=== PATIENT | female | born 1965 | race Hispanic/Latino ===

== ENCOUNTER 2018-02-15 17:59 | Inpatient (IN) | payer MEDICARE, OTHER ==
[2018-02-15] MEDS ORDERED: Sodium Chloride 0.9% 1,000 ML IV STA ×2 (18:58→22:04)
--- NOTE | 2018-02-15 19:22 | ED PDOC ---
Addendum entered and electronically signed by Yulissa May PA-C 02/16/18 00:27: Addendum Addendum: 02/16/18 00:26 Spoke with Adriana regarding CT results, she advised to continue with inpt medsurg admission and to order MRI for the morning. MRI ordered Original Note: Arrival/HPI - General Chief Complaint: Weakness/Neurological Deficit Time Seen by Provider: 02/15/18 18:43 - History of Present Illness Narrative History of Present Illness (Text): 02/15/18 22:13 53 y/o female with PMH of DM Type 2, Hypothyroidism, Down Syndrome, Hyperlipidemia who was sent to the ED with her brother by Dr. Falcon c/o intermittent altered mental status for 5 days. History obtained from brother. Pt has been intermittently confused, sleepy, and disoriented for the last week, with associated lack of appetite. Today pt visited Dr. Falcon with bloodwork results that showed a TSH of 57. Dr. Falcon sent pt here to r/o DKA v. infection v. severe hypothyroidism v. dehydration. Family has been tracking her sugars, which have been running 200-300. She lives at home with her 87 year old mother. Denies head trauma, fever, chills, cough, chest pain, palpitations, syncope, abdominal pain, N/V, diarrhea, rash, urinary symptoms. Past Medical History - Provider Review Nursing Documentation Reviewed: Yes - Reproductive Menopause: Yes (2007) - Cardiac Hx Cardiac Disorders: Yes - Pulmonary Hx Respiratory Disorders: No - Neurological Hx Neurological Disorder: No - HEENT Hx HEENT Disorder: No - Renal Hx Renal Disorder: No - Endocrine/Metabolic Hx Endocrine Disorders: Yes Hx Diabetes Mellitus Type 2: Yes Hx Hypothyroidism: Yes - Hematological/Oncological Hx Blood Disorders: No - Integumentary Hx Dermatological Disorder: No - Musculoskeletal/Rheumatological Hx Musculoskeletal Disorders: No - Gastrointestinal Hx Gastrointestinal Disorders: No - Genitourinary/Gynecological Hx Genitourinary Disorders: No - Psychiatric Hx Psychophysiologic Disorder: No Hx Substance Use: No - Surgical History Hx Orthopedic Surgery: Yes (right lower extremity; right hip) - Anesthesia Hx Anesthesia: Yes Family/Social History - Physician Review Nursing Documentation Reviewed: Yes Family/Social History: No Known Family HX Smoking Status: Never Smoked Hx Alcohol Use: No Hx Substance Use: No Allergies/Home Meds Allergies/Adverse Reactions: Allergies Penicillins Allergy (Verified 02/15/18 18:40) ANAPHYLAXIS Sulfa (Sulfonamide Antibiotics) Allergy (Verified 02/15/18 18:40) ANAPHYLAXIS Home Medications: Home Meds Medication Instructions Recorded Confirmed Cholecalciferol [Vitamin D 1000 IU] 50,000 units PO TUE 02/15/18 02/15/18 GlipiZIDE [Glucotrol] 5 mg PO BID 02/15/18 02/15/18 Levothyroxine [Synthroid] 75 mg PO DAILY 02/15/18 02/15/18 MetFORMIN [glucoPHAGE] 500 mg PO BID 02/15/18 02/15/18 Simvastatin [Zocor] 10 mg PO DAILY 02/15/18 02/15/18 Review of Systems - Physician Review All systems were reviewed & negative as marked: Yes - Review of Systems Constitutional: Fatigue. absent: Fevers, Night Sweats Eyes: Normal ENT: Normal Respiratory: Normal. absent: SOB, Cough, Sputum Cardiovascular: Normal. absent: Chest Pain, Palpitations, Syncope Gastrointestinal: Normal. absent: Abdominal Pain, Stool Changes, Nausea, Vomiting, Appetite Changes, Hematochezia Genitourinary Female: Normal. absent: Dysuria, Frequency, Hematuria Musculoskeletal: Arthralgias (left knee; chronic) Skin: Normal. absent: Rash Neurological: Normal. absent: Headache, Dizziness, Focal Weakness, Gait C hanges, Speech Changes, Facial Droop Physical Exam - Physical Exam Physical Exam Limitations: Other (Down Syndrome) Vital Signs Reviewed: Yes Vital Signs Temp Pulse Resp BP Pulse Ox 02/15/18 18:30 98.1 F 94 H 17 111/70 98 Temperature: Afebrile Blood Pressure: Normal Pulse: Regular Respiratory Rate: Normal Appearance: Positive for: Other (sleepy, pale) Pain Distress: None Mental Status: Positive for: Confused, Lethargic Finger Stick Blood Glucose: 137 - Systems Exam Head: Present: Atraumatic, Normocephalic Pupils: Present: PERRL Extroacular Muscles: Present: EOMI Conjunctiva: Present: Normal Ears: Present: Normal Mouth: Present: Dry Pharnyx: Present: Normal. No: ERYTHEMA, EXUDATE Nose (External): Present: Atraumatic Nose (Internal): Present: Normal Inspection Neck: Present: Normal Range of Motion. No: Meningeal Signs Respiratory/Chest: Present: Clear to Auscultation, Good Air Exchange. No: Respiratory Distress, Accessory Muscle Use Cardiovascular: Present: Regular Rate and Rhythm, Normal S1, S2. No: Murmurs Abdomen: No: Tenderness, Distention, Peritoneal Signs Upper Extremity: Present: NORMAL PULSES. No: Cyanosis, Edema Lower Extremity: Present: NORMAL PULSES. No: Edema Neurological: Present: CN II-XII Intact, Motor Func Grossly Intact, Normal Sensory Function. No: GCS=15 (14) Skin: Present: Warm, Dry, Pale. No: Rashes Lymphatic: No: Cervical Adenopathy Psychiatric: Present: Lethargic Medical Decision Making ED Course and Treatment: 02/15/18 19:09 53 y/o female with PMH of DM Type 2, Hypothyroidism, Down Syndrome, Hyperlipidemia who was sent to the ED with her brother by Dr. Falcon c/o intermittent altered mental status for 5 days. History obtained from brother. Pt has been intermittently confused, sleepy, and disoriented for the last week, with associated lack of appetite. Today pt visited Dr. Falcon with bloodwork results that showed a TSH of 57. Dr. Falcon sent pt here to r/o DKA v. infection v. severe hypothyroidism v. dehydration. Family has been tracking her sugars, which have been running 200-300. She lives at home with her 87 year old mother. Denies head trauma, fever, chills, cough, chest pain, palpitations, syncope, abdominal pain, N/V, diarrhea, rash, urinary symptoms. will get labs (CBC, CMP, troponin, lipid panel, A1c) will get vbg and blood cultures will check thyroid function and cortisol levels will get CT head will give 1L NS 02/15/18 22:[address] Zbigniew Wright accepted pt for inpt admission on [facility] Recommendation: -75cc/h IV fluids -IV Levothyroxine (4mcg/kg per Dr. Coy) 02/15/18 23:04 Pt awake and alert in bed, answering questions and communicating appropriately Ct Head: Mild brain atrophy and ventricular dilatation. Minimal area of asymmetric basal ganglia calcification or minimal petechial hemorrhage suggested at the left basal ganglia for which clinical correlation and follow up study recommended. 02/15/18 23:07 Re-evaluation Time: 23:03 Reassessment Condition: Re-examined, Improved - Lab Interpretations Lab Results: Lab Results 02/15/18 19:07: POC Glucose (mg/dL) 137 H - Medication Orders Current Medication Orders: Sodium Chloride (Sodium Chloride 0.9%) 1,000 mls @ 999 mls/hr IV .Q1H1M STA Stop: 02/15/18 19:58 Disposition/Present on Arrival - Present on Arrival Any Indicators Present on Arrival: No History of DVT/PE: No History of Uncontrolled Diabetes: No Urinary Catheter: No History of Decub. Ulcer: No History Surgical Site Infection Following: None - Disposition Have Diagnosis and Disposition been Completed?: Yes Diagnosis: Altered mental status Disposition: HOSPITALIZED Disposition Time: 22:00 Patient Problems: Current Active Problems Problem Status Onset Altered mental status Acute Condition: IMPROVED
[2018-02-15 19:58] LABS: VENOUS BLOOD GAS BASE EXCESS 8.2 mmol/L (0.0-2.0); VENOUS BLOOD GAS PO2 34 mm/Hg (30-55); VENOUS BLOOD PH 7.37 (7.32-7.43)
[2018-02-15 20:00] LABS: BASO # 0.03 K/mm3 (0.0-2.0); BASO % 0.5 % (0.0-3.0); GRAN # 4.62 (1.4-6.5); GRAN % 76.9 % (50.0-68.0); HEMOGLOBIN 13.7 g/dL (12.0-16.0); LYMPH # 0.8 (1.2-3.4); LYMPH % 13.8 % (22.0-35.0); MEAN CELL VOLUME 92.9 fl (80.0-105.0); MEAN CORPUSCULAR HEMOGLOBIN 31.4 pg (25.0-35.0); MEAN CORPUSCULAR HGB CONC 33.8 g/dl (31.0-37.0); MEAN PLATELET VOLUME 10.6 fl (7.0-11.0); MONO # 0.5 (0.1-0.6); MONO % 8.8 % (1.0-6.0); RBC 4.36 10^6/uL (3.5-6.1); RED CELL DISTRIBUTION WIDTH 13.5 % (11.5-14.5)
[2018-02-15 20:11] LABS: ALB/GLOB RATIO 1.1 (1.1-1.8); ALT/SGPT 50 U/L (7-56); AST/SGOT 60 U/L (14-36); BLOOD UREA NITROGEN 21 mg/dL (7-21); CALCIUM 9.4 mg/dL (8.4-10.5); GFR NON-AFRICAN AMERICAN > 60; HDL CHOLESTEROL 44 mg/dL (29-60)
[2018-02-15 20:21] LABS: LDL CHOLESTEROL 87 mg/dL (0-129)
[2018-02-15 20:25] LABS: TROPONIN I < 0.01 ng/mL
[2018-02-15 21:04] LABS: FREE T4 1.19 ng/dL (0.78-2.19)
[2018-02-15 21:44] LABS: URINE BILIRUBIN NEGATIVE (NEGATIVE); URINE BLOOD NEGATIVE (NEGATIVE); URINE GLUCOSE (UA) NEGATIVE (NEGATIVE); URINE LEUKOCYTE ESTERASE NEGATIVE Leu/uL (NEGATIVE); URINE PROTEIN NEGATIVE mg/dL (<30 mg/dL)
[2018-02-15 21:48] LABS: URINE APPEARANCE CLEAR (CLEAR); URINE COLOR YELLOW (YELLOW)
[2018-02-16 00:23] VITALS: BMI 21.2
--- NOTE | 2018-02-16 04:48 | HP ---
HISTORY OF PRESENT ILLNESS: Patient is 53 years old, mentally challenged, was noted by the family that patient has recently been confused and somewhat disoriented below her baseline and she has been sleepy, not eating that well. Patient is not very communicative. History was obtained from brother by ER physicians. No history of fever, no chills. No recent trauma and these symptoms have been going on for the last almost 1 week. Because of the above symptoms, patient was taken to PMD, Dr. Falcon who ordered some blood tests and blood tests showed her TSH of 57, so Dr. Falcon advised patient's brother to take her to emergency room for further evaluation. PAST MEDICAL HISTORY: Patient has significant past medical history of: 1. Down syndrome. 2. Hypertension. 3. Hyperlipidemia. 4. Enw-zolvfuz-eynwpwcxd diabetes. 5. Hypothyroidism. ALLERGIES: PATIENT IS ALLERGIC TO SULFA AND PENICILLIN. MEDICATIONS AT HOME: Patient is on metformin 500 twice a day, levothyroxine 75 mcg daily, glipizide 5 mg twice a day, simvastatin 10 mg daily. SOCIAL HISTORY: Patient is mentally challenged, lives with her family. Had menopause few years ago. PHYSICAL EXAMINATION: GENERAL: Patient is nonverbal . VITAL SIGNS: Patient is afebrile, pulse 94, respirations 17, blood pressure 111/70. LUNGS: Bilateral fair airflow. No rhonchi or crackle. HEART: S1 and S2 audible. ABDOMEN: Soft and nontender. No rebound. No guarding. NEUROLOGIC: Patient is awake and alert, but not oriented. LABORATORY DATA: WBC 6, hemoglobin 13, hematocrit 40, platelets 222. Chemistry: Sodium 136, potassium 4.5, chloride 92, CO2 34, BUN 21, creatinine 0.8, blood sugar of 137. Total bili 2.5, AST 60. LFTs are within normal limit. TSH is 27.1 and T4 is 1.19. Urinalysis is unremarkable. ASSESSMENT: 1. Altered mental status, etiology unclear yet. 2. Hypothyroidism. 3. Hypertension. 4. Hyperlipidemia. 5. Mentally challenged. PLAN: We will start patient on IV fluids. Monitor blood sugar. Start her on statins and Synthroid. Carotid Doppler has been ordered. We will follow up CT scan of the head also. Familia Wright MD [facility] # [id number]
[2018-02-16] MEDS ORDERED: Influenza Vaccine 60 mcg/0.5 mL SYR (4YR UP) IM ONE (05:19)
[2018-02-16] MEDS ORDERED: Pneumococcal 23-Valent Vaccine IM ONE (05:19)
[2018-02-16] MEDS: Insulin Lispro (humaLOG) MEDIUM Coverage SC SCH ×4 (08:16→22:14)
--- NOTE | 2018-02-16 08:40 | CT ---
Date of service: 02/15/2018 PROCEDURE: CT HEAD WITHOUT CONTRAST. HISTORY: headache COMPARISON: None available. TECHNIQUE: Axial computed tomography images were obtained through the head/brain without intravenous contrast. Radiation dose: Total exam DLP = mGy-cm. This CT exam was performed using one or more of the following dose reduction techniques: Automated exposure control, adjustment of the mA and/or kV according to patient size, and/or use of iterative reconstruction technique. FINDINGS: HEMORRHAGE: No intracranial hemorrhage. BRAIN: The levi-white matter differentiation is well preserved. There is no mass effect or definitive edema pattern appreciated including the cortex. There is limited, proportional expansion of the ventriculosulcal and cisternal spaces however in a pattern most compatible with diffuse cerebral atrophy. No suspicious extra-axial fluid collection is identified in the midline brain anatomy appears grossly nonfocal as imaged. VENTRICLES: Unremarkable. No hydrocephalus. CALVARIUM: Unremarkable. PARANASAL SINUSES: Unremarkable as visualized. No significant inflammatory changes. MASTOID AIR CELLS: Unremarkable as visualized. No inflammatory changes. OTHER FINDINGS: None. IMPRESSION: No definite acute intracranial findings by standard CT criteria. Limited diffuse cerebral atrophy is appreciated, which appears age appropriate. Follow-up CT or MRI are available if clinically warranted. Discordant preliminary report from [facility], 02/15/2018.
[2018-02-16] MEDS ORDERED: Levothyroxine 100 mcg (0.1 mg) Inj IVP SCH (10:00)
[2018-02-16] MEDS ORDERED: Levothyroxine 75 MCG TAB PO SCH (10:00)
--- NOTE | 2018-02-16 12:34 | US ---
PROCEDURE: Bilateral carotid artery duplex ultrasound HISTORY: Carotid stenosis syncope PHYSICIAN(S): Omid Starkey MD. TECHNIQUE: Duplex sonography and color-flow Doppler were used to evaluate the carotid bifurcations and limited segments of the vertebral arteries bilaterally. The exam is somewhat limited by tortuous vessels. FINDINGS: There is mild smooth heterogeneous plaque noted at the carotid bifurcations bilaterally. The peak systolic velocity in the proximal right internal carotid artery is 59 cm/sec. This corresponds to a 20 to 39% proximal right ICA stenosis. Normal systolic velocities are noted in the proximal right external carotid artery. There is antegrade flow in the dominant right vertebral artery. The peak systolic velocity in the proximal left internal carotid artery is 74 cm/sec. This corresponds to a 20 to 39% proximal left ICA stenosis. Normal systolic velocities are noted in the proximal left external carotid artery. There is antegrade flow in the left vertebral artery. IMPRESSION: 1. Bilateral 20-39% proximal ICA stenoses. 2. Antegrade flow in both vertebral arteries.
--- NOTE | 2018-02-16 13:03 | PN ---
DATE: 02/16/2018 SUBJECTIVE: The patient is 53 years old, seen and examined, enjoying her lunch. Awake and alert, confused, disoriented. PHYSICAL EXAMINATION: VITAL SIGNS: She is afebrile, pulse 100, respirations 20, blood pressure 135/85. LUNGS: Bilateral fair airflow. No rhonchi or crackle. HEART: S1 and S2 audible. ABDOMEN: Soft. Nontender. No rebound. No guarding. NEUROLOGICAL: The patient is awake and alert and disoriented. She is mentally challenged. LABORATORY EXAM: Blood sugar is 147. Hemoglobin A1c is 6.7. TSH is 27.10. Urinalysis is unremarkable. Her bilateral carotid ultrasound done that is unremarkable. ASSESSMENT: 1. Cerebral palsy. 2. Status post altered mental status, seems to be improving. 3. Mild renal insufficiency. 4. Hypothyroidism. PLAN: We will continue the patient on current medication. I will order for thyroid test in the a.m. and we will request for out of bed to chair and physical therapy if tolerated. We will follow up the patient in the a.m. Familia Wright MD
--- NOTE | 2018-02-16 16:05 | MRI ---
Date of service: 02/16/2018 PROCEDURE: MRI BRAIN WITHOUT CONTRAST HISTORY: petechial hemorrhage COMPARISON: Noncontrast head CT 02/15/2018. TECHNIQUE: Multiplanar, multisequence MR images of the brain were obtained without intravenous contrast enhancement. FINDINGS: HEMORRHAGE: Left greater than right medial basal ganglia signal loss without accompanying significant T1 or T2 signal abnormality indicates basal ganglia calcifications. No definite intracranial hemorrhage appreciable at this time. DWI: No evidence of an acute or early subacute infarction. BRAIN PARENCHYMA: Good corticomedullary differentiation is reiterated. Also again seen is mild diffuse cerebral atrophy and chronic microangiopathy. No suspicious extra-axial fluid collection is identified and the midline brain anatomy appears grossly nonfocal as imaged. There is no mass effect throughout. No atrophy or chronic microvascular ischemic changes. VENTRICLES: Unremarkable. No hydrocephalus. CRANIUM: Unremarkable. ORBITS: Grossly unremarkable. PARANASAL SINUSES/MASTOIDS: Clear VASCULAR SYSTEM: Skull base flow voids intact. OTHER FINDINGS: None. IMPRESSION: No definite petechial hemorrhage appreciable this time. Left greater than right basal ganglia calcifications are identified instead. Limited age-related neuro degenerative findings reiterated. Follow-up CT of the head available as clinically warranted.
[2018-02-17] MEDS: Levothyroxine 75 MCG TAB PO SCH (05:25)
[2018-02-17] MEDS: Insulin Lispro (humaLOG) MEDIUM Coverage SC SCH ×4 (08:00→22:18)
[2018-02-17 23:27] VITALS: RESP 18
[2018-02-18] MEDS ORDERED: DiphenhydrAMINE 50 mg/ml Inj IVP STA (00:36)
--- NOTE | 2018-02-18 02:47 | PN ---
DATE: 02/17/2018 SUBJECTIVE: The patient is a 53-year-old, seen and examined, sitting in chair, seems to be comfortable, complained of right knee pain. The patient's brother who is by the bedside. PHYSICAL EXAMINATION VITAL SIGNS: She is afebrile, pulse 90, respiration 18, blood pressure 126/79. LUNGS: Bilateral good airflow. No rhonchi or crackle. HEART: S1 and S2 audible. ABDOMEN: Soft, nontender. No rebound. No guarding. NEUROLOGICAL: The patient is awake, alert, confused, and disoriented. EXTREMITIES: The right knee has decreased range of motion because of the pain. The patient recently was evaluated by Dr. Eldridge, who gave injection in the right knee. LABORATORY EXAM: MRI of the brain, no definite petechial hemorrhages appreciable, left greater than the right basal ganglia calcification. Carotid Doppler was done that shows bilateral 39% proximal ICA. ASSESSMENT: 1. Status post altered mental status. 2. Right knee osteoarthritis. 3. Hypothyroidism. 4. Hypertension. 5. Hyperlipidemia. PLAN: The patient was evaluated by physical therapist and recommendation is for TCU rehab. Evaluation is requested. Once the patient is accepted, the patient can be transferred to TCU. Familia Wright MD
[2018-02-18] MEDS: Levothyroxine 75 MCG TAB PO SCH ×2 (05:31→06:42)
[2018-02-18 07:26] VITALS: BP 110/66; PULSE 66; TEMP 98.3; O2SAT 98
[2018-02-18] MEDS: Insulin Lispro (humaLOG) MEDIUM Coverage SC SCH ×3 (07:56→17:48)
--- NOTE | 2018-02-18 12:59 | CON ---
DATE: 02/18/2018 HISTORY OF PRESENT ILLNESS: A 53-year-old female in room 562, bed 2. Complains of knee pain. Family suggests that she has a meniscus tear in her right knee because she used to walk well a couple of weeks ago. Now, she has difficulty walking. There are no x-rays done yet. She did have a surgical procedure done on her right hip 4-5 years ago at [facility] where family said she has pins and a plate in the right hip and we are going to wait for the x-rays to come back. In the meantime, we could use physical therapy, get her up out of bed. There are no overt fractures. Today, it looks like she has mild arthritis of her right knee and we are waiting for the MRI to be done, but no surgeries planned at this time, but I am going to write for physical therapy and increase her mobilization. I suspect she has a right hip problem because the range of motion of the right hip is not as good as the left, so she must have some type of posttraumatic arthritis of her right hip and mild arthritis of the right knee, but I will wait for the x-rays to confirm this. Dougie Foss DO
--- NOTE | 2018-02-19 04:56 | DS ---
HISTORY OF PRESENT ILLNESS: The patient is 53 years old, seen and examined. Seems to be comfortable. No nausea or vomiting. No diarrhea. PHYSICAL EXAMINATION: VITAL SIGNS: She is afebrile, pulse 66, respirations 18, blood pressure 110/66. LUNGS: Bilateral fair airflow. No rhonchi or crackle. HEART: S1 and S2 audible. ABDOMEN: Soft. Nontender. No rebound. No guarding. NEUROLOGICAL: The patient is awake, alert, able to communicate, but somewhat confused. According to nurse, she has been up all night. LABORATORY EXAM: Blood culture, urine cultures are negative. Complained of right knee pain. MRI was ordered, but unable to do because of compact schedule. The patient is being transferred to TCU for rehab and for further close monitoring. ASSESSMENT: 1. Altered mental status. 2. Hypothyroidism. 3. History of cerebral palsy. 4. Hypertension. 5. Hyperlipidemia. PLAN: The patient will be transferred to TCU. She will continue on physical therapy. We will continue her on current medication. She will be followed by Dr. Foss as outpatient and she will get MRI as outpatient. Familia Wright MD
--- NOTE | 2018-02-19 10:21 | RAD ---
Date of service: 02/19/2018 PROCEDURE: Right Knee Radiographs. HISTORY: Pain. No history of recent/ related trauma provided COMPARISON: None. FINDINGS: BONES: No acute fractures. No evidence of orthopedic hardware failure. JOINTS: Degenerative changes, mild. JOINT EFFUSION: None. OTHER FINDINGS: None. IMPRESSION: No acute findings related to/accounting for the clinical presentation. Additional benign and/or incidental findings described above.
--- NOTE | 2018-02-19 10:38 | RAD ---
Date of service: 02/19/2018 PROCEDURE: Pelvis bilateral hips HISTORY: Pain. No history of recent/ related trauma provided COMPARISON: None TECHNIQUE: Standard protocol for this study/examination. FINDINGS: Pelvis and right hip: Hardware failure. Three fenestrated and partially fenestrated screws are disrupted. High riding distal femur relative to the femoral head. The findings are likely chronic. Incomplete visualization of distal femoral hardware. Pelvis and left hip: Mild degenerative change. 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 No acute findings
== END 2018-02-18 20:29 | DRG 948 ==
LOC: ED 17:59 → ERH 22:04 → 5RNO 02-16 01:28
PROVIDERS: ADMIT Internal Medicine; ATTEND Internal Medicine
DX: R41.82 Altered mental status, unspecified (principal); R51 Headache; Q90.9 Down syndrome, unspecified; E03.9 Hypothyroidism, unspecified; E11.9 Type 2 diabetes mellitus without complications; Z79.84 Long term (current) use of oral hypoglycemic drugs; E78.5 Hyperlipidemia, unspecified; G80.9 Cerebral palsy, unspecified; I10 Essential (primary) hypertension; M12.551 Traumatic arthropathy, right hip; M17.11 Unilateral primary osteoarthritis, right knee; Z88.0 Allergy status to penicillin; Z88.2 Allergy status to sulfonamides

== ENCOUNTER 2018-02-18 20:17 | Inpatient (IN) | payer OTHER ==
[2018-02-18 20:47] VITALS: BMI 22.6
[2018-02-18] MEDS: Insulin Lispro (humaLOG) MEDIUM Coverage SC SCH (22:15)
[2018-02-18] MEDS ORDERED: Pneumococcal 23-Valent Vaccine IM ONE (22:39)
[2018-02-18] MEDS ORDERED: Influenza Vaccine 60 mcg/0.5 mL SYR (4YR UP) IM ONE (22:39)
[2018-02-19] MEDS: Levothyroxine 75 MCG TAB PO SCH (05:26)
[2018-02-19] MEDS: Insulin Lispro (humaLOG) MEDIUM Coverage SC SCH ×4 (06:45→22:34)
[2018-02-19] MEDS: Vitamins A & D Oint UD Foilpak TOP PRN (16:57)
--- NOTE | 2018-02-20 04:53 | HP ---
HISTORY OF PRESENT ILLNESS: Patient is a 53-year-old, who was brought to emergency room because she was sent by Dr. Falcon. He noted the patient has had hypothyroidism and according to family, she was not behaving to her baseline. She was increasingly sleepy. So she was brought to ER. She was also dehydrated. She was given IV fluids. She was evaluated by physical therapist, recommended for TCU evaluation. So, she was transferred to TCU for further management and physical therapy. PAST MEDICAL HISTORY: She has significant past medical history of: 1. Cerebral palsy. 2. Mpx-uaodjok-ktsbalffj diabetes. 3. Hypertension. 4. Hypothyroidism. ALLERGIES: SHE IS ALLERGIC TO PENICILLIN AND SULFA. SOCIAL HISTORY: She lives with her family. There is no history of smoking or alcohol use. PHYSICAL EXAMINATION: GENERAL: She is awake and alert, but not communicative that well. VITAL SIGNS: She is afebrile, pulse 87, respirations 20, blood pressure 118/76. LUNGS: Bilateral fair airflow. No rhonchi or crackle. HEART: S1 and S2 audible. ABDOMEN: Soft and nontender. No rebound. No guarding. NEUROLOGIC: She is awake and alert, but not very communicative. Answers simple questions. LABORATORY EXAM: Blood sugar is 127. ASSESSMENT: 1. Cerebral palsy. 2. Hypothyroidism. 3. [id number]-ubnkxtvcq diabetes. 4. Hypertension. PLAN: We will continue current medication, encourage ambulation, monitor blood sugar, and follow up. Familia Wright MD
[2018-02-20] MEDS: Levothyroxine 75 MCG TAB PO SCH (05:12)
[2018-02-20] MEDS: Insulin Lispro (humaLOG) MEDIUM Coverage SC SCH ×4 (06:44→21:49)
--- NOTE | 2018-02-20 14:31 | PN ---
DATE: 02/20/2018 SUBJECTIVE: The patient is 53 years old, seen and examined. Seems to be comfortable. Awake, alert, able to communicate. Answers simple question. PHYSICAL EXAMINATION: VITAL SIGNS: She is afebrile, pulse 87, respirations 20, blood pressure 118/76. LUNGS: Bilateral fair airflow. No rhonchi or crackle. HEART: S1 and S2 audible. ABDOMEN: Soft. Nontender. No rebound. No guarding. NEUROLOGICAL: She is awake, alert, oriented, communicative. Answers simple question. LABORATORY EXAM: Her blood sugar is 182. ASSESSMENT: 1. Status post altered mental status. 2. Right knee osteoarthritis. 3. Hypothyroidism. 4. Cerebral palsy. 5. Deconditioning and difficulty walking. PLAN: I will adjust the patient's diabetes medication. Continue physical therapy. We will follow up the patient in the a.m. Familia Wright MD
--- NOTE | 2018-02-20 14:52 | CP.PCM.CON ---
<Caitlin Bruce - Last Filed: 02/20/18 14:57> History of Present Illness - History of Present Illness History of Present Illness: Podiatry Consult Note for Dr. Mcarthur: 53 yo, female patient with PMHx of DM Type 2, Hypothyroidism, Down Syndrome, Hyperlipidemia, seen and evaluated at bedside for elongated painful toenails. Patient is AAO x3 and in NAD. Patient states that her nails get caught and cause pain in her socks and shoes. She is unable to cut her nails herself. She denies any other pedal complaints at this time. Patient is accompanied by her mom at this time. Denies N/V/F/SOB/CP. PMHx: DM Type 2, Hypothyroidism, Down Syndrome, Hyperlipidemia ALL: PCN, Sulfa Review of Systems - Review of Systems Review of Systems: As per HPI Past Patient History - Past Social History Smoking Status: Never Smoked - CARDIAC Hx Cardiac Disorders: Yes Hx Hypercholesterolemia: Yes - PULMONARY Hx Respiratory Disorders: No - NEUROLOGICAL Hx Neurological Disorder: Yes Other/Comment: down syndrome - HEENT Hx HEENT Problems: No - RENAL Hx Chronic Kidney Disease: No - ENDOCRINE/METABOLIC Hx Diabetes Mellitus Type 2: Yes Hx Hypothyroidism: Yes - HEMATOLOGICAL/ONCOLOGICAL Hx Blood Disorders: No - INTEGUMENTARY Hx Dermatological Problems: No - MUSCULOSKELETAL/RHEUMATOLOGICAL Hx Falls: Yes - GASTROINTESTINAL Hx Gastrointestinal Disorders: No - GENITOURINARY/GYNECOLOGICAL Hx Genitourinary Disorders: Yes (INOCNTINENT) Hx Reproductive Disorders: No (MENOPAUSE) - PSYCHIATRIC Hx Psychophysiologic Disorder: No - SURGICAL HISTORY Hx Orthopedic Surgery: Yes (right lower extremity; right hip) - ANESTHESIA Hx Anesthesia: Yes Meds Allergies/Adverse Reactions: Allergies Allergy/AdvReac Type Severity Reaction Status Date / Time Penicillins Allergy ANAPHYLAXIS Verified 02/18/18 22:15 Sulfa (Sulfonamide Allergy ANAPHYLAXIS Verified 02/18/18 22:15 Antibiotics) - Medications Medications: Current Medications Glipizide (Glucotrol) 10 mg PO ACB CRISTO Glipizide (Glucotrol) 5 mg PO ACD C[facility]O Insulin Human Lispro (Humalog Med) 0 units SC ACHS [facility]; Protocol Last Admin: 02/20/18 12:14 Dose: Not Given Levothyroxine Sodium (Synthroid) 75 mcg PO 0600 [facility] Last Admin: 02/20/18 05:12 Dose: 75 mcg Metformin HCl (Glucophage) 500 mg PO BID [facility] Last Admin: 02/20/18 09:30 Dose: 500 mg Ondansetron HCl (Zofran Inj) 4 mg IVP Q6 PRN PRN Reason: Nausea/Vomiting Sitagliptin Phosphate (Januvia) 100 mg PO DAILY [facility] Last Admin: 02/20/18 09:30 Dose: 100 mg Vitamin A (Vitamin A & D Oint Ud Foilpak) 1 ea TOP TID PRN; Protocol PRN Reason: dry lips Last Admin: 02/19/18 16:57 Dose: 1 ea Physical Exam - Constitutional Appears: Well, Non-toxic, No Acute Distress - Head Exam Head Exam: ATRAUMATIC, NORMOCEPHALIC - Extremities Exam Additional comments: Lower extremity focused exam: Vascular: DP/PT palpable, CFT < 3 seconds, no edema noted to bilateral lower extremities Ortho: Patient able to move toes, no tenderness to palpation Neuro: Gross and protective sensation intact Derm: Elongated, mycotic, dystrophic toenails x 10. No open lesions, no erythema, no clinical signs of infection. Results - Vital Signs Recent Vital Signs: Last Vital Signs Temp 97.6 F 02/19/18 10:00 Pulse 87 02/19/18 10:00 Resp 20 02/19/18 10:00 BP 118/76 02/19/18 10:00 Pulse Ox 98 02/19/18 10:00 - Labs Labs: Laboratory Results - last 24 hr 02/19/18 02/19/18 02/20/18 16:13 21:54 04:34 POC Glucose (mg/dL) 129 H 124 H 132 H 02/20/18 11:05 POC Glucose (mg/dL) 182 H Assessment & Plan - Assessment and Plan (Free Text) Assessment: 53 yo, female patient with PMHx of DM Type 2, Hypothyroidism, Down Syndrome, Hyperlipidemia, seen and evaluated at bedside for elongated painful toenails. Plan: Patient seen and evaluated at bedside Patient plan discussed in detail with Dr. Mcarthur Elongated, dystrophic nails were debrided with a large nail nipper without incident to patient tolerance Podiatry to sign off at this time; please reconsult as needed Thank you for the consult and allowing us to partake in the care of this patient - Date & Time Date: 02/20/18 Time: 15:25 <Sparkle Mcarthur - Last Filed: 02/26/18 18:21> Results - Vital Signs Recent Vital Signs: Last Vital Signs Temp 98.6 F 02/25/18 10:00 Pulse 77 02/25/18 10:00 Resp 16 02/25/18 10:00 BP 103/68 02/25/18 10:00 Pulse Ox 94 L 02/25/18 10:00 - Labs Result Diagrams: 02/23/18 13:26 02/23/18 13:26 Attending/Attestation - Attestation I have personally seen and examined this patient.: Yes I have fully participated in the care of the patient.: Yes I have reviewed all pertinent clinical information: Yes
--- NOTE | 2018-02-21 00:19 | CON ---
DATE: 02/20/2018 HISTORY OF PRESENT ILLNESS: The patient is a 53-year-old female with Down syndrome and has an abnormal gait with shortening of the right lower extremity and an antalgic gait. X-rays of the knee is finally done shows a well-healed fracture with metal stabilization on the right distal femur. No significant arthritis of the right knee, but she does have a displaced subcapital fracture of right hip with 3 screws that are broke that were put in approximately 3-4 years ago for a fracture. All the screws broke at the area of the fracture and she is amazingly walking with a walker without much complaint of pain. She does have some vague discomfort of the knee from referred pain from the hip. My feeling is that I would not do any surgery for this disabled patient to begin with and I advised just to continue ambulation and let the fracture become a fibrous union, but the family wants a second opinion, so I told them they should go. He would like her to have a new hip with a prosthesis, but we will see. I told him the risks and complications and the complications may outweigh the benefits. So, in the meantime, we will continue the patient walking with a walker and for longer mobilization other than the room to go in a wheelchair and the mother understands, but the brother wants another opinion, so I told him to go to the private physician that did the surgery to begin with. FINAL DIAGNOSES: Chronic subcapital fracture of right hip with broke hard roach to seek a second opinion to see if they want someone else to do a total hip on the right, but in the meantime to continue ambulation with a walker and weightbearing to tolerance. Dougie Foss DO
[2018-02-21] MEDS: Levothyroxine 75 MCG TAB PO SCH (05:38)
[2018-02-21] MEDS: Insulin Lispro (humaLOG) MEDIUM Coverage SC SCH ×4 (08:40→21:31)
[2018-02-21] MEDS ORDERED: TraMADol/Apap 37.5/325 mg Tab PO PRN (19:50)
--- NOTE | 2018-02-21 23:22 | PN ---
DATE: 02/21/2018 SUBJECTIVE: Patient is [id number] sitting in chair outside her room, does not want to go inside the room. She wants to go home. Participating in therapy. PHYSICAL EXAMINATION: VITAL SIGNS: She is afebrile, pulse 87, respirations 18, blood pressure 107/73. LUNGS: Bilateral fair airflow. No rhonchi or crackle. HEART: S1 and S2 audible. ABDOMEN: Soft, nontender. No rebound. No guarding. NEUROLOGIC: She is awake and alert, but confused and somewhat disoriented. LABORATORY EXAM: Blood sugar is 88. ASSESSMENT: 1. Cerebral palsy. 2. Hypothyroidism. 3. Hypertension. 4. Hyperlipidemia. 5. Right knee osteoarthritis. 6. History of chronic subcapital fracture of the right hip. PLAN: Followup her thyroid profile and lipid profile in a.m. Continue physical therapy. Dr. Foss's notes appreciated and reviewed. We will follow up the patient in a.m. Familia Wright MD
[2018-02-22] MEDS: Levothyroxine 75 MCG TAB PO SCH (05:26)
[2018-02-22] MEDS: Insulin Lispro (humaLOG) MEDIUM Coverage SC SCH ×4 (07:31→21:57)
--- NOTE | 2018-02-22 13:31 | PN ---
DATE: 02/22/2018 SUBJECTIVE: The patient is 53 years old, seen and examined, seems to be comfortable. Sleepy, but arousable. PHYSICAL EXAMINATION: VITAL SIGNS: The patient is afebrile, pulse 87, respirations 18, and blood pressure 107/73. LUNGS: Bilateral fair airflow. No rhonchi or crackle. HEART: S1, S2 audible. ABDOMEN: Soft, nontender. No rebound, no guarding. NEUROLOGIC: She is awake and alert, able to communicate, but answers simple questions. ASSESSMENT: 1. Cerebral palsy. 2. Status post dehydration. 3. Hypothyroidism. 4. Bos-oiemqhd-ywjbahkhx diabetes. PLAN: I will order for CMP and thyroid profile in a.m. We will request for a psych evaluation to adjust her medications because she gets agitated at night. She was given Ativan last night and now she seems to be very sleepy with that. We will follow up the patient in a.m. Familia Wright MD
[2018-02-22] MEDS: Vitamins A & D Oint UD Foilpak TOP PRN (13:39)
[2018-02-23] MEDS: Levothyroxine 75 MCG TAB PO SCH (05:06)
[2018-02-23] MEDS: Insulin Lispro (humaLOG) MEDIUM Coverage SC SCH ×4 (06:56→22:14)
[2018-02-23 14:03] LABS: FREE T4 1.03 ng/dL (0.78-2.19)
[2018-02-23 15:06] LABS: ALB/GLOB RATIO 1.1 (1.1-1.8); ALBUMIN 4.3 g/dL (3.0-4.8); ALT/SGPT 21 U/L (7-56); AST/SGOT 38 U/L (14-36); BLOOD UREA NITROGEN 14 mg/dL (7-21); CALCIUM 9.7 mg/dL (8.4-10.5); GFR NON-AFRICAN AMERICAN > 60
--- NOTE | 2018-02-23 18:58 | PN ---
DATE: 02/23/2018 SUBJECTIVE: The patient is 53 years old, seen and examined, seems to be in good mood today, did exercise, states she did workout, she is happy with that, otherwise she is not in any distress, eating and tolerating. PHYSICAL EXAMINATION VITAL SIGNS: She is afebrile, pulse 89, respirations 16, and blood pressure 93/71. LUNGS: Bilateral good airflow. No rhonchi or crackle. HEART: S1 and S2 audible. ABDOMEN: Soft, nontender. No rebound, no guarding. NEUROLOGIC: The patient is awake, alert, oriented, communicative. LABORATORY DATA: Blood sugar is 165. ASSESSMENT: 1. Status post altered mental status. 2. Dehydration. 3. Rsp-wqxdxfv-cfdmcwjab diabetes. 4. Hypertension. 5. Hyperlipidemia. PLAN: We will continue the patient on current medication. We will follow up her thyroid profile to adjust her medication. Familia Wright MD
--- NOTE | 2018-02-24 04:13 | CON ---
DATE: 02/23/2018 HISTORY OF PRESENT ILLNESS: Shortly, the patient is 53-year-old female with neurocognitive deficit. The patient had Down syndrome, hyperlipidemia. The patient was admitted on the medical site for delirium stage. The patient was sent by her primary care physician to rule out diabetic ketoacidosis versus infection versus severe hypothyroidism versus dehydration. Psych consult was called for episode of agitation. The patient was seen and examined today. The patient presented to be calm, cooperative. The patient has childlike demeanor typical face. The patient did not exhibit any aggression or agitation. The patient seems to be poor and unreliable historian due to neurocognitive deficit, reported to feel comfortable. Denied being depressed. Denied any somatic complaints. Collaterals were obtained from the nursing staff. The patient had one episode of agitation as well as hallucinations, but today the patient presented very well. The patient also has tendency of feeling restless and anxious when her mother is not around the patient. The patient's mother is on the way. The patient's mother has dialysis. Other than that, there is no acute issues going on with the patient. Last time the patient was agitated, was on 02/19. Since that time, there is no aggression, no inappropriate behavior. Vital signs are stable. Temperature 98.4, pulse is 82, blood pressure 98/62. Medications reviewed. There is no psychotropic medications. Labs reviewed. Most recent was from the 02/23. AST mildly elevated. TSH is elevated at 55. MENTAL STATUS EXAMINATION: The patient presented to be alert, intense eye contact. Speech was underproductive, poverty of speech. Mood described as okay. Affect was flat. Thought process, concrete. Thought content, the patient was not able to comprehend the questions about hallucinations, suicidality and delusions but the patient does not present to be psychotic or delusional. Insight and judgment seems to be limited which is baseline. Impulses are better controlled. IMPRESSION: Episodes of agitation could be related to delirium stage. The patient obviously has neurocognitive deficit and Down syndrome. PLAN: This jingle writer would recommend Endocrinology evaluation for elevated TSH. Other than that, the patient presented well. No agitation, no aggression. The patient is improving. This jingle writer will sign off. Should you have any questions, give me a call back. This jingle writer feels that episodes of agitation could be related to delirium and sleep deprivation, but the patient is improving. Thank you very much for letting me participate in care of your patient. Rochelle Lilly MD
[2018-02-24] MEDS: Levothyroxine 125 MCG TAB PO SCH (05:10)
[2018-02-24] MEDS: Insulin Lispro (humaLOG) MEDIUM Coverage SC SCH ×4 (06:30→22:18)
--- NOTE | 2018-02-24 14:07 | PN ---
DATE: 02/24/2018 SUBJECTIVE: The patient is a 53-year-old, seen and examined, seen in gym, doing well. According to nurse, did not sleep well last night. PHYSICAL EXAMINATION: VITAL SIGNS: She is afebrile, pulse 82, respirations 18, blood pressure 98/69. LUNGS: Bilateral fair airflow. No rhonchi or crackle. HEART: S1, S2 audible. ABDOMEN: Soft, nontender. No rebound, no guarding. NEUROLOGIC: The patient is awake, alert, oriented, communicative. ASSESSMENT AND PLAN: 1. Cerebral palsy. 2. Hypothyroidism. 3. Hsf-traeaee-txcoptnrq diabetes. 4. Hypertension. So, plan is we will increase the patient's levothyroxine to 125 mcg daily and possible discharge over the weekend. Familia Wright MD
[2018-02-25] MEDS: Levothyroxine 125 MCG TAB PO SCH (05:03)
[2018-02-25] MEDS: Insulin Lispro (humaLOG) MEDIUM Coverage SC SCH (07:28)
[2018-02-25] MEDS: Vitamins A & D Oint UD Foilpak TOP PRN (09:08)
[2018-02-25 12:48] VITALS: BP 103/68; PULSE 77; RESP 16; TEMP 98.6; O2SAT 94
--- NOTE | 2018-02-25 23:01 | DS ---
HISTORY OF PRESENT ILLNESS: The patient is 53 years old, who was brought to emergency room because of altered mental status. She was found to be recently hypothyroidism. She was started on 75 mcg of Synthroid. The patient was also complaining of right knee pain. She was seen by Dr. Eldridge lately and who gave intraarticular injection. The patient was also evaluated by Dr. Foss, who recommended physical therapy that she was getting while in here. Today, seen in the ICU, I saw her and examined, the patient's family by the bedside. They state the patient is upset and does not sleep well here. They want to take her home. GENERAL: The patient is awake, alert, oriented, communicative. VITAL SIGNS: She is afebrile, pulse 82, respirations 18, blood pressure 98/62. LUNGS: Bilateral good airflow. No rhonchi or crackle. HEART: S1 and S2 audible. ABDOMEN: Soft. Nontender. No rebound. No guarding. NEUROLOGICAL: The patient is awake, alert, oriented, able to communicate. ASSESSMENT: 1. Hypothyroidism. 2. Noninsulin-dependent diabetes. 3. Cerebral palsy. 4. Hyperlipidemia. PLAN: We will discharge the patient on metformin 500 twice a day, glipizide 5 mg twice a day, vitamin D 50,000 once a week. She will be on Crestor 5 mg daily and Synthroid 125 mcg daily. She will be followed up with her PMD to monitor her T4, TSH. Familia Wright MD
== END 2018-02-25 13:43 | disposition home or self-care (01) | DRG 640 ==
LOC: TRCU 20:17
PROVIDERS: ADMIT Internal Medicine; ATTEND Internal Medicine
PROC: F07Z9FZ Gait Training/Functional Ambulation Treatment using Assistive, Adaptive, Supportive or Protective Equipment (ICD-10-PCS; principal; 2018-02-19)
PROC: F07M6ZZ Therapeutic Exercise Treatment of Musculoskeletal System - Whole Body (ICD-10-PCS; 2018-02-19)
PROC: F08Z2ZZ Grooming/Personal Hygiene Treatment (ICD-10-PCS; 2018-02-19)
PROC: F08Z1ZZ Dressing Techniques Treatment (ICD-10-PCS; 2018-02-19)
DX: E86.0 Dehydration (principal); S72.011A Unspecified intracapsular fracture of right femur, initial encounter for closed fracture; E03.9 Hypothyroidism, unspecified; E11.9 Type 2 diabetes mellitus without complications; E78.00 Pure hypercholesterolemia, unspecified; E78.5 Hyperlipidemia, unspecified; G80.9 Cerebral palsy, unspecified; I10 Essential (primary) hypertension; M17.11 Unilateral primary osteoarthritis, right knee; Q90.9 Down syndrome, unspecified; Z79.890 Hormone replacement therapy